=== PATIENT | male | born 1990 | race Caucasian/White ===

== ENCOUNTER 2016-07-31 01:40 | Emergency (ER) | payer MEDICAID, SELFPAY ==
[~2016-07-31] VITALS: Ht 175.3 cm; Wt 68.0 kg
[~2016-07-31 01:40] MED LIST: ALBU17IN2 INH; CLIN1CAP5 PO; CLIN75CA PO; DEPA1TAB3 PO; DEPA250T2 PO; DEPA250T32 PO; DEPA500T2 PO; DOXY10CA PO; EFFE75CA75 OR; IBUP60TA PO; LAMI25TA OR; No Historical Meds; No home meds; PROZ10CA7 PO; RISATAB3 PO; RISP0.5T16 PO; RISP0.5T3 PO; RISP1TAB41 PO; ROBISYP PO; TRAZO50TA PO; [UNRECOGNIZED DRUG - OTHER]; hydrocodone PO
[2016-07-31] MEDS ORDERED: DEPA500T2 (02:00)
[2016-07-31] MEDS ORDERED: RISP0.5T3 (02:00)
[2016-07-31 03:40] LABS: MEAN CORPUSCULAR HEMOGLOBIN 30.8 pg (27.0-33.0); MEAN CORPUSCULAR HGB CONC 33.8 g/dl (32.0-36.5); MEAN CORPUSCULAR VOLUME 91.2 fl (80.0-96.0); RED CELL DISTRIBUTION WIDTH 12.3 % (11.5-14.5); WHITE BLOOD COUNT 7.1 K/mm3 (4.0-10.0)
[2016-07-31 03:49] LABS: METHADONE URINE NEGATIVE (NEGATIVE)
[2016-07-31 03:57] LABS: ALBUMIN 4.1 GM/DL (3.2-5.2); ALBUMIN/GLOBULIN RATIO 1.37 (1.00-1.93); ALKALINE PHOSPHATASE 75 U/L (45-117); ALT/SGPT 78 U/L (12-78); ANION GAP 8 MEQ/L (8-16); AST/SGOT 54 U/L (15-37); BILIRUBIN,DIRECT 0.2 MG/DL (0.0-0.2); BILIRUBIN,TOTAL 0.6 MG/DL (0.2-1.0); BLOOD UREA NITROGEN 18 MG/DL (7-18); CALCIUM LEVEL 8.4 MG/DL (8.5-10.1); CARBON DIOXIDE LEVEL 30 MEQ/L (21-32); CHLORIDE LEVEL 104 MEQ/L (98-107); CREATININE FOR GFR 1.21 MG/DL (0.70-1.30); GLOMERULAR FILTRATION RATE > 60.0 (>60); GLUCOSE, FASTING 95 MG/DL (70-105); POTASSIUM SERUM 3.9 MEQ/L (3.5-5.1); SODIUM LEVEL 142 MEQ/L (136-145); TOTAL PROTEIN 7.1 GM/DL (6.4-8.2)
[2016-07-31 06:39] VITALS: BP 105/54
--- NOTE | 2016-07-31 20:27 | ECGEPIP ---
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
== END 2016-07-31 06:41 | disposition home or self-care (01) ==
LOC: M ED 04:00
DX: F19.10 Other psychoactive substance abuse, uncomplicated (principal); F31.9 Bipolar disorder, unspecified; B19.20 Unspecified viral hepatitis C without hepatic coma; F43.10 Post-traumatic stress disorder, unspecified; F17.210 Nicotine dependence, cigarettes, uncomplicated
CPT/HCPCS: 36415; 80048; 80076; 80306; 82550; 84443; 85027; 93005; 99285; G0480

== ENCOUNTER 2016-08-17 21:23 | Emergency (ER) | payer MEDICAID, SELFPAY ==
[~2016-08-17] VITALS: Ht 177.8 cm; Wt 70.3 kg
[~2016-08-17 21:23] MED LIST changes: +DEPA500T2; +RISP0.5T3
[2016-08-17 21:24] VITALS: BP 141/79
[2016-08-17] MEDS ORDERED: BACTRIM 160MG/800MG DS TAB PO ONE (22:15)
[2016-08-17] MEDS ORDERED: BACT800T5 PO (22:15)
== END 2016-08-17 22:23 | disposition left against medical advice (07) ==
LOC: M ED 21:54
DX: L03.114 Cellulitis of left upper limb (principal); Z88.0 Allergy status to penicillin

== ENCOUNTER 2016-09-05 17:15 | Emergency (ER) | payer SELFPAY ==
[~2016-09-05] VITALS: Ht 177.8 cm; Wt 68.0 kg
[~2016-09-05 17:15] MED LIST changes: +BACT800T5 PO
[2016-09-05 17:16] VITALS: BP 123/66
[2016-09-06] MEDS ORDERED: CLEO75CA PO (21:01)
[2016-09-06] MEDS ORDERED: CLEO300C2 PO (21:44)
[2016-09-06] MEDS ORDERED: NAPR500T PO (21:44)
== END 2016-09-05 18:14 | disposition left against medical advice (07) ==
LOC: M ED 17:57
DX: L02.91 Cutaneous abscess, unspecified (principal); Z53.21 Procedure and treatment not carried out due to patient leaving prior to being seen by health care provider

== ENCOUNTER 2016-09-06 20:54 | Emergency (ER) | payer MEDICAID, SELFPAY ==
[~2016-09-06] VITALS: Ht 177.8 cm; Wt 70.3 kg
[2016-09-06 20:55] VITALS: BP 130/60
[2016-09-06] MEDS ORDERED: CLEO75CA PO (21:01)
[2016-09-06] MEDS ORDERED: NAPR500T PO (21:44)
[2016-09-06] MEDS ORDERED: CLEO300C2 PO (21:44)
[2016-09-06] MEDS ORDERED: CLINDAMYCIN 150 MG CAP PO ONE (21:45)
== END 2016-09-06 21:55 | disposition home or self-care (01) ==
LOC: M ED 21:34
DX: L02.413 Cutaneous abscess of right upper limb (principal); L02.414 Cutaneous abscess of left upper limb; F19.10 Other psychoactive substance abuse, uncomplicated; J45.909 Unspecified asthma, uncomplicated; Z88.0 Allergy status to penicillin

== ENCOUNTER 2016-09-17 14:17 | Emergency (ER) | payer MEDICAID, SELFPAY ==
[~2016-09-17] VITALS: Ht 177.8 cm; Wt 70.3 kg
[~2016-09-17 14:17] MED LIST changes: +CLEO300C2 PO; +CLEO75CA PO; +NAPR500T PO
[2016-09-17 15:50] LABS: BASO % 0.5 % (0.0-1.0); EOS # 0.1 K/mm3 (0.0-0.50); EOS % 1.3 % (0.0-3.0); LARGE UNSTAINED CELL # 0.2 K/mm3 (0.0-0.4); LYMPH # 1.9 K/mm3 (1.5-6.5); LYMPH % 22.4 % (24.0-44.0); MEAN CORPUSCULAR HGB CONC 33.4 g/dl (32.0-36.5); MEAN CORPUSCULAR VOLUME 92.9 fl (80.0-96.0); MONO # 0.6 K/mm3 (0.0-0.8); MONO % 8.1 % (0.0-5.0); NEUTROPHILS # 5.1 K/mm3 (1.8-7.7); NEUTROPHILS % 65.8 % (36.0-66.0); PLATELET COUNT, AUTOMATED 201 k/mm3 (150-450); RED CELL DISTRIBUTION WIDTH 12.5 % (11.5-14.5); WHITE BLOOD COUNT 7.7 K/mm3 (4.0-10.0)
[2016-09-17 16:08] LABS: METHADONE URINE NEGATIVE (NEGATIVE)
[2016-09-17 16:15] LABS: ALBUMIN 3.9 GM/DL (3.2-5.2); ALBUMIN/GLOBULIN RATIO 1.34 (1.00-1.93); ALKALINE PHOSPHATASE 68 U/L (45-117); ALT/SGPT 120 U/L (12-78); ANION GAP 9 MEQ/L (8-16); AST/SGOT 54 U/L (15-37); BILIRUBIN,DIRECT 0.1 MG/DL (0.0-0.2); BILIRUBIN,TOTAL 0.5 MG/DL (0.2-1.0); BLOOD UREA NITROGEN 14 MG/DL (7-18); CALCIUM LEVEL 8.6 MG/DL (8.5-10.1); CARBON DIOXIDE LEVEL 27 MEQ/L (21-32); CHLORIDE LEVEL 103 MEQ/L (98-107); CREATININE FOR GFR 1.01 MG/DL (0.70-1.30); GLOMERULAR FILTRATION RATE > 60.0 (>60); GLUCOSE, FASTING 96 MG/DL (70-105); SODIUM LEVEL 139 MEQ/L (136-145); TOTAL PROTEIN 6.8 GM/DL (6.4-8.2)
[2016-09-17 18:18] VITALS: BP 134/74
== END 2016-09-17 18:19 | disposition home or self-care (01) ==
LOC: M ED 15:22
DX: F15.10 Other stimulant abuse, uncomplicated (principal); F12.10 Cannabis abuse, uncomplicated; L03.114 Cellulitis of left upper limb; J45.909 Unspecified asthma, uncomplicated; F90.9 Attention-deficit hyperactivity disorder, unspecified type; F31.9 Bipolar disorder, unspecified; F43.10 Post-traumatic stress disorder, unspecified; F17.200 Nicotine dependence, unspecified, uncomplicated; Z88.0 Allergy status to penicillin; Z88.1 Allergy status to other antibiotic agents
CPT/HCPCS: 36415; 80048; 80076; 80306; 84443; 85025; 99283; G0480

== ENCOUNTER 2016-09-24 22:49 | Emergency (ER) | payer MEDICAID ==
[~2016-09-24] VITALS: Ht 177.8 cm; Wt 68.0 kg
[2016-09-25] MEDS ORDERED: LORazepam 2 MG/ML VIAL (J2060) IV STA (00:20)
[2016-09-25] MEDS ORDERED: NS 1,000 ML IV ONE (00:30)
[2016-09-25 01:47] LABS: ANION GAP 6 MEQ/L (8-16); BLOOD UREA NITROGEN 13 MG/DL (7-18); CALCIUM LEVEL 9.1 MG/DL (8.5-10.1); CARBON DIOXIDE LEVEL 30 MEQ/L (21-32); CHLORIDE LEVEL 103 MEQ/L (98-107); GLOMERULAR FILTRATION RATE > 60.0 (>60); GLUCOSE, FASTING 99 MG/DL (70-105); POTASSIUM SERUM 4.1 MEQ/L (3.5-5.1); SODIUM LEVEL 139 MEQ/L (136-145)
[2016-09-25 02:29] VITALS: BP 142/66
== END 2016-09-25 02:32 | disposition home or self-care (01) ==
LOC: M ED 23:49
DX: F15.10 Other stimulant abuse, uncomplicated (principal); F17.200 Nicotine dependence, unspecified, uncomplicated; Z79.899 Other long term (current) drug therapy; Z88.0 Allergy status to penicillin
CPT/HCPCS: 80048; 82550; 96374; 99282; J2060

== ENCOUNTER 2016-10-03 17:56 | Emergency (ER) | payer MEDICAID ==
[~2016-10-03] VITALS: Ht 177.8 cm; Wt 68.0 kg
[2016-10-03] MEDS ORDERED: NS 1,000 ML IV ONE (18:15)
[2016-10-03 18:31] LABS: BASO % 0.3 % (0.0-1.0); EOS # 0.1 K/mm3 (0.0-0.50); EOS % 1.3 % (0.0-3.0); LARGE UNSTAINED CELL # 0.2 K/mm3 (0.0-0.4); LARGE UNSTAINED CELL % 3.2 % (0.0-4.0); LYMPH # 2.3 K/mm3 (1.5-6.5); LYMPH % 30.5 % (24.0-44.0); MEAN CORPUSCULAR HEMOGLOBIN 31.8 pg (27.0-33.0); MEAN CORPUSCULAR HGB CONC 34.2 g/dl (32.0-36.5); MEAN CORPUSCULAR VOLUME 93.1 fl (80.0-96.0); MONO # 0.5 K/mm3 (0.0-0.8); MONO % 7.2 % (0.0-5.0); NEUTROPHILS # 4.4 K/mm3 (1.8-7.7); NEUTROPHILS % 57.4 % (36.0-66.0); PLATELET COUNT, AUTOMATED 245 k/mm3 (150-450); RED CELL DISTRIBUTION WIDTH 12.5 % (11.5-14.5); WHITE BLOOD COUNT 7.6 K/mm3 (4.0-10.0)
[2016-10-03 18:58] LABS: ALBUMIN 4.2 GM/DL (3.2-5.2); ALBUMIN/GLOBULIN RATIO 1.45 (1.00-1.93); ALT/SGPT 155 U/L (12-78); ANION GAP 9 MEQ/L (8-16); AST/SGOT 73 U/L (15-37); BILIRUBIN,DIRECT 0.2 MG/DL (0.0-0.2); BILIRUBIN,TOTAL 0.6 MG/DL (0.2-1.0); BLOOD UREA NITROGEN 21 MG/DL (7-18); CARBON DIOXIDE LEVEL 29 MEQ/L (21-32); CHLORIDE LEVEL 101 MEQ/L (98-107); CREATININE FOR GFR 1.08 MG/DL (0.70-1.30); GLOMERULAR FILTRATION RATE > 60.0 (>60); GLUCOSE, FASTING 122 MG/DL (70-105); SODIUM LEVEL 139 MEQ/L (136-145); TOTAL PROTEIN 7.1 GM/DL (6.4-8.2)
[2016-10-03 18:59] LABS: ALKALINE PHOSPHATASE 70 U/L (45-117)
[2016-10-03 19:02] LABS: METHADONE URINE NEGATIVE (NEGATIVE)
[2016-10-03] MEDS ORDERED: LORazepam 2 MG/ML VIAL (J2060) IV STA (19:21)
[2016-10-03] MEDS ORDERED: GI COCKTAIL 50ML BTL(HYOSCYAMINE/MAALOX/LIDOCAINE VISCOUS)(1:3:1) PO ONE (19:30)
[2016-10-04 02:37] VITALS: BP 109/58
--- NOTE | 2016-10-04 16:38 | ECGEPIP ---
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
== END 2016-10-04 02:38 | disposition home or self-care (01) ==
LOC: M ED 18:51
DX: F15.129 Other stimulant abuse with intoxication, unspecified (principal); R07.9 Chest pain, unspecified; B19.20 Unspecified viral hepatitis C without hepatic coma; F31.9 Bipolar disorder, unspecified; F17.200 Nicotine dependence, unspecified, uncomplicated; Z88.0 Allergy status to penicillin; Z79.2 Long term (current) use of antibiotics
CPT/HCPCS: 36415; 80048; 80076; 80306; 82550; 82553; 83690; 85025; 93005; 93041; 96374; 96375; 99285; G0480; J2060; J3360

== ENCOUNTER 2016-10-19 14:03 | Emergency (ER) | payer MEDICAID ==
[~2016-10-19] VITALS: Ht 177.8 cm; Wt 68.0 kg
[2016-10-19 14:04] VITALS: BP 135/78
== END 2016-10-19 14:49 | disposition home or self-care (01) ==
LOC: M ED 14:47
DX: S80.11XA Contusion of right lower leg, initial encounter (principal); W22.09XA Striking against other stationary object, initial encounter; Y92.410 Unspecified street and highway as the place of occurrence of the external cause; Y93.89 Activity, other specified; Y99.8 Other external cause status; F17.200 Nicotine dependence, unspecified, uncomplicated; Z88.0 Allergy status to penicillin

== ENCOUNTER 2016-10-24 14:36 | Emergency (ER) | payer MEDICAID, OTHER, SELFPAY ==
[~2016-10-24] VITALS: Ht 177.8 cm; Wt 68.0 kg
[2016-10-24 14:37] VITALS: BP 140/74
== END 2016-10-24 15:36 | disposition left against medical advice (07) ==
LOC: M ED 15:30
DX: M79.662 Pain in left lower leg (principal); Z53.21 Procedure and treatment not carried out due to patient leaving prior to being seen by health care provider

== ENCOUNTER 2016-11-03 20:45 | Emergency (ER) | payer OTHER, SELFPAY ==
[~2016-11-03] VITALS: Ht 177.8 cm; Wt 67.6 kg
[2016-11-03 20:46] VITALS: BP 134/72
== END 2016-11-03 21:38 | disposition left against medical advice (07) ==
LOC: M ED 21:29
DX: Z53.29 Procedure and treatment not carried out because of patient's decision for other reasons (principal)

== ENCOUNTER 2016-11-09 10:55 | Emergency (ER) | payer OTHER, SELFPAY ==
[~2016-11-09] VITALS: Ht 177.8 cm; Wt 68.2 kg
[2016-11-09 10:57] VITALS: BP 156/96
[2016-11-09 12:57] LABS: BASO % 0.5 % (0.0-1.0); EOS # 0.1 K/mm3 (0.0-0.50); EOS % 0.7 % (0.0-3.0); LARGE UNSTAINED CELL # 0.2 K/mm3 (0.0-0.4); LYMPH # 2.6 K/mm3 (1.5-6.5); LYMPH % 23.5 % (24.0-44.0); MEAN CORPUSCULAR HEMOGLOBIN 32.1 pg (27.0-33.0); MEAN CORPUSCULAR HGB CONC 33.7 g/dl (32.0-36.5); MEAN CORPUSCULAR VOLUME 95.3 fl (80.0-96.0); MONO # 0.6 K/mm3 (0.0-0.8); MONO % 5.9 % (0.0-5.0); NEUTROPHILS # 6.9 K/mm3 (1.8-7.7); NEUTROPHILS % 67.3 % (36.0-66.0); PLATELET COUNT, AUTOMATED 238 k/mm3 (150-450); RED CELL DISTRIBUTION WIDTH 13.2 % (11.5-14.5); WHITE BLOOD COUNT 10.2 K/mm3 (4.0-10.0)
--- NOTE | 2016-11-09 13:04 | REP ---
Chest x-ray: Two views. History: Sternal pain . Comparison study: February 04, 2016 . Findings: The lungs are well inflated and free of infiltrate. The pleural angles are sharp. The heart size is normal. Pulmonary vasculature is not increased. No significant bony abnormality is seen. There is a minimal S-shaped roto scoliotic curve in the thoracolumbar spine unchanged. Impression: Minimal scoliosis unchanged from February 12, 2016 prior study. Otherwise negative chest x-ray. Signed by Omkar Ken MD 11/09/2016 12:56 P
[2016-11-09 14:22] LABS: ALBUMIN 4.1 GM/DL (3.2-5.2); ALBUMIN/GLOBULIN RATIO 1.21 (1.00-1.93); ALKALINE PHOSPHATASE 85 U/L (45-117); ALT/SGPT 184 U/L (12-78); ANION GAP 5 MEQ/L (8-16); AST/SGOT 74 U/L (15-37); BILIRUBIN,DIRECT 0.1 MG/DL (0.0-0.2); BILIRUBIN,TOTAL 0.4 MG/DL (0.2-1.0); BLOOD UREA NITROGEN 12 MG/DL (7-18); CARBON DIOXIDE LEVEL 31 MEQ/L (21-32); CHLORIDE LEVEL 104 MEQ/L (98-107); CREATININE FOR GFR 1.08 MG/DL (0.70-1.30); GLOMERULAR FILTRATION RATE > 60.0 (>60); GLUCOSE, FASTING 87 MG/DL (70-105); POTASSIUM SERUM 4.1 MEQ/L (3.5-5.1); SODIUM LEVEL 140 MEQ/L (136-145); TOTAL PROTEIN 7.5 GM/DL (6.4-8.2)
--- NOTE | 2016-11-10 07:17 | REP ---
STERNUM SERIES: Two views. HISTORY: Xyphoid process pain. FINDINGS: Oblique and lateral radiographs of the sternum show normal manubrium, sternal body, and xyphoid process. These are best depicted on the lateral radiograph. There is no evidence of deformity, displacement or erosive change. No pre sternal or retrosternal soft tissue swelling is seen. IMPRESSION: Negative sternal views. Signed by Omkar Ken MD 11/10/2016 08:23 A
--- NOTE | 2016-11-11 08:52 | ECGEPIP ---
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 Order Number: [id number] Reading MD: Marija Velasquez Measurements Intervals [place] Rate: 104 P: 79 CO: 115 QRS: 88 QRSD: 102 T: 39 QT: 315 QTc: 415 Interpretive Statements SINUS TACHYCARDIA WITH SHORT CO INTERVAL ABNORMAL RHYTHM ECG RAD DECREASED RATE 10/03/16 Electronically Signed On 11-11-2016 8:51:48 EDT by Marija Velasquez
== END 2016-11-09 14:19 | disposition left against medical advice (07) ==
LOC: M ED 12:30
DX: M79.603 Pain in arm, unspecified (principal); F19.10 Other psychoactive substance abuse, uncomplicated; R07.9 Chest pain, unspecified; Z88.0 Allergy status to penicillin

== ENCOUNTER → 2016-11-26 | Outpatient (CLI) | payer OTHER ==
[~2016-11-26] MED LIST changes: +CLIN150C14 PO; -CLIN1CAP5 PO; +DOXY100T2 PO; -DOXY10CA PO; -RISP0.5T16 PO; +RISP0.5T21 PO; -RISP1TAB41 PO; +RISP1TAB42 PO
== END ==
LOC: M OUTALCOH 12:12
PROVIDERS: ATTEND Psychiatry & Neurology Psychiatry
DX: Z13.9 Encounter for screening, unspecified (principal); F15.20 Other stimulant dependence, uncomplicated; F10.20 Alcohol dependence, uncomplicated

== ENCOUNTER 2016-12-28 06:11 | Emergency (ER) | payer OTHER ==
[~2016-12-28] VITALS: Ht 177.8 cm; Wt 70.5 kg
[2016-12-28 07:32] VITALS: BP 161/106
== END 2016-12-28 07:35 | disposition home or self-care (01) ==
LOC: M ED 06:11
DX: I80.8 Phlebitis and thrombophlebitis of other sites (principal); B19.20 Unspecified viral hepatitis C without hepatic coma; F11.90 Opioid use, unspecified, uncomplicated; F17.200 Nicotine dependence, unspecified, uncomplicated; Z88.0 Allergy status to penicillin

== ENCOUNTER 2017-02-09 05:01 | Emergency (ER) | payer OTHER ==
[~2017-02-09] VITALS: Ht 180.3 cm; Wt 75.0 kg
[2017-02-09 05:17] VITALS: BP 136/82
== END 2017-02-09 06:31 | disposition left against medical advice (07) ==
LOC: M ED 05:01
DX: S90.561A Insect bite (nonvenomous), right ankle, initial encounter (principal); W57.XXXA Bitten or stung by nonvenomous insect and other nonvenomous arthropods, initial encounter; Y92.89 Other specified places as the place of occurrence of the external cause; Y93.89 Activity, other specified; Y99.8 Other external cause status; Z53.29 Procedure and treatment not carried out because of patient's decision for other reasons

== ENCOUNTER → 2017-02-09 | Outpatient (REF) | payer OTHER | LOC: M LAB REF 17:01 | PROVIDERS: ATTEND Physician Assistant Medical | DX: S91.105A Unspecified open wound of left lesser toe(s) without damage to nail, initial encounter (principal); X58.XXXA Exposure to other specified factors, initial encounter; Y93.9 Activity, unspecified; Y92.9 Unspecified place or not applicable; Y99.8 Other external cause status ==

== ENCOUNTER 2017-02-16 06:28 | Emergency (ER) | payer OTHER ==
[~2017-02-16] VITALS: Ht 175.3 cm; Wt 71.2 kg
[2017-02-16 06:49] VITALS: BP 143/84
[2017-02-16] MEDS ORDERED: NS 1,000 ML IV SCH (07:20)
[2017-02-16] MEDS ORDERED: METOCLOPRAMIDE INJ 10MG/2ML VIAL (J2765) IV ONE (07:30)
--- NOTE | 2017-02-16 08:40 | ECGEPIP ---
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
== END 2017-02-16 07:51 | disposition left against medical advice (07) ==
LOC: M ED 06:28 → EDBD 06:28 → M ED 07:51
DX: F19.10 Other psychoactive substance abuse, uncomplicated (principal); F17.210 Nicotine dependence, cigarettes, uncomplicated; Z88.0 Allergy status to penicillin

== ENCOUNTER → 2017-05-07 | Outpatient (CLI) | payer OTHER | LOC: M OUTALCOH 07:50 | PROVIDERS: ATTEND Psychiatry & Neurology Psychiatry | DX: F15.20 Other stimulant dependence, uncomplicated (principal); F10.20 Alcohol dependence, uncomplicated ==

== ENCOUNTER 2017-05-19 10:44 | Outpatient (RCR) | payer OTHER | END 2017-05-24 | LOC: M OUTALCOH 10:44 | DX: F15.20 Other stimulant dependence, uncomplicated (principal); F10.20 Alcohol dependence, uncomplicated; F17.200 Nicotine dependence, unspecified, uncomplicated ==

== ENCOUNTER 2017-06-05 14:27 | Outpatient (RCR) | payer OTHER | END 2017-06-24 | LOC: M OUTALCOH 14:27 | DX: F15.20 Other stimulant dependence, uncomplicated (principal); F10.20 Alcohol dependence, uncomplicated; F17.200 Nicotine dependence, unspecified, uncomplicated ==

== ENCOUNTER 2017-06-25 11:17 | Outpatient (RCR) | payer OTHER | END 2017-07-22 | LOC: M OUTALCOH 11:17 | DX: F15.20 Other stimulant dependence, uncomplicated (principal); F10.20 Alcohol dependence, uncomplicated; F17.200 Nicotine dependence, unspecified, uncomplicated ==

== ENCOUNTER 2017-09-23 13:53 | Emergency (ER) | payer OTHER ==
[2017-09-23] MEDS: IBUPROFEN 800 MG TAB PO (14:45)
[2017-09-23] MEDS: METHOCARBAMOL 500 MG TAB PO (14:47)
== END 2017-09-23 15:14 | disposition home or self-care (01) ==
LOC: M ED 13:53
DX: S29.012A Strain of muscle and tendon of back wall of thorax, initial encounter (principal); S16.1XXA Strain of muscle, fascia and tendon at neck level, initial encounter; X50.9XXA Other and unspecified overexertion or strenuous movements or postures, initial encounter; Y92.89 Other specified places as the place of occurrence of the external cause; J45.909 Unspecified asthma, uncomplicated; F17.210 Nicotine dependence, cigarettes, uncomplicated; Z88.0 Allergy status to penicillin
CPT/HCPCS: 99283

== ENCOUNTER → 2017-12-24 | Outpatient (CLI) | payer OTHER | LOC: M OUTALCOH 08:33 | DX: Z13.9 Encounter for screening, unspecified (principal); F15.20 Other stimulant dependence, uncomplicated; F10.20 Alcohol dependence, uncomplicated; F12.10 Cannabis abuse, uncomplicated ==

== ENCOUNTER 2018-02-26 15:42 | Emergency (ER) | payer OTHER | END 2018-02-26 16:37 | disposition left against medical advice (07) | LOC: M ED 15:42 | DX: Z53.21 Procedure and treatment not carried out due to patient leaving prior to being seen by health care provider (principal) ==

== ENCOUNTER → 2018-04-08 | Outpatient (CLI) | payer MEDICAID | LOC: M OUTALCOH 08:15 | DX: F15.20 Other stimulant dependence, uncomplicated (principal) ==

== ENCOUNTER → 2019-03-10 | Outpatient (REF) | payer OTHER ==
[~2019-03-10] MED LIST changes: +IBUP600T42 PO; -IBUP60TA PO; +IBUP80TA PO; +NAPR-837 PO; -NAPR500T PO; +ROBA500T PO; +TRAZ1TAB10 PO; -TRAZO50TA PO
[2019-03-10 13:52] LABS: CHOLESTEROL LEVEL 182 MG/DL (<200); CHOLESTEROL RISK RATIO 3.309 (<5); HDL CHOLESTEROL 55 MG/DL (>40); LDL CHOLESTEROL 110 MG/DL (<100); NON-HDL-C 127 MG/DL; TRIGLYCERIDES LEVEL 85 MG/DL (<150)
[2019-03-10 14:14] LABS: HEMOGLOBIN A1c 5.7 %
[2019-03-11 11:50] LABS: HIV 1&2 SCREEN CENTAUR NEGATIVE (NEGATIVE)
[2019-03-14 14:08] LABS: HEPATITIS C QUANTITATION 116940 IU/mL (.)
== END ==
LOC: M SFHCPLAZ 09:43
PROVIDERS: ATTEND Family Medicine
DX: B18.2 Chronic viral hepatitis C (principal); Z13.1 Encounter for screening for diabetes mellitus; F19.10 Other psychoactive substance abuse, uncomplicated; Z13.220 Encounter for screening for lipoid disorders

== ENCOUNTER → 2019-03-25 | Outpatient (CLI) | payer OTHER | LOC: M OUTALCOH 08:19 | PROVIDERS: ATTEND Psychiatry & Neurology Psychiatry | DX: F10.20 Alcohol dependence, uncomplicated (principal); F12.10 Cannabis abuse, uncomplicated; F15.10 Other stimulant abuse, uncomplicated ==

== ENCOUNTER → 2019-04-01 | Outpatient (REF) | payer OTHER ==
[2019-04-01 18:54] LABS: APPEARANCE, URINE CLEAR (CLEAR); BACTERIA, URINE AUTO NEGATIVE (NEGATIVE); BILIRUBIN, URINE AUTO NEGATIVE (NEGATIVE); BLOOD, URINE BLOOD NEGATIVE (NEGATIVE); COLOR, URINE YELLOW (YELLOW); GLUCOSE, URINE (UA) AUTO NEGATIVE (NEGATIVE); KETONE, URINE AUTO NEGATIVE (NEGATIVE); LEUKOCYTE ESTERASE, URINE AUTO NEGATIVE (NEGATIVE); MUCUS, URINE SMALL (NEGATIVE); NITRITE, URINE AUTO NEGATIVE (NEGATIVE); PROTEIN, URINE AUTO NEGATIVE (NEGATIVE); RBC, URINE AUTO 0 /HPF (0-3); SPECIFIC GRAVITY URINE AUTO 1.008 (1.002-1.035); SQUAMOUS EPITHELIAL CELL UR AU 0 /HPF (0-6); UROBILINOGEN, URINE AUTO 0.2 mg/dL (0.0-2.0); WBC, URINE AUTO 0 /HPF (0-3)
[2019-04-01 20:45] LABS: CHLAMYDIA DNA AMPLIFICATION NEGATIVE (NEGATIVE); GC DNA AMPLIFICATION NEGATIVE (NEGATIVE)
== END ==
LOC: M LAB REF 18:19
PROVIDERS: ATTEND Physician Assistant
DX: N39.0 Urinary tract infection, site not specified (principal)

== ENCOUNTER 2019-04-20 13:58 | Outpatient (RCR) | payer OTHER | END 2019-04-23 | LOC: M OUTALCOH 13:58 | PROVIDERS: ATTEND Psychiatry & Neurology Psychiatry | DX: F15.10 Other stimulant abuse, uncomplicated (principal); F10.20 Alcohol dependence, uncomplicated; F17.200 Nicotine dependence, unspecified, uncomplicated; F12.10 Cannabis abuse, uncomplicated ==

== ENCOUNTER 2019-05-16 14:00 | Outpatient (RCR) | payer OTHER | END 2019-05-24 | LOC: M OUTALCOH 14:00 | PROVIDERS: ATTEND Psychiatry & Neurology Psychiatry | DX: F15.10 Other stimulant abuse, uncomplicated (principal); F10.20 Alcohol dependence, uncomplicated; F12.10 Cannabis abuse, uncomplicated; F17.200 Nicotine dependence, unspecified, uncomplicated ==

== ENCOUNTER → 2019-07-10 | Outpatient (REF) | payer OTHER ==
[2019-07-10 17:23] LABS: AMORPHOUS SEDIMENT SMALL (NEGATIVE); APPEARANCE, URINE CLEAR (CLEAR); BACTERIA, URINE AUTO NEGATIVE (NEGATIVE); BILIRUBIN, URINE AUTO NEGATIVE (NEGATIVE); BLOOD, URINE BLOOD NEGATIVE (NEGATIVE); COLOR, URINE YELLOW (YELLOW); GLUCOSE, URINE (UA) AUTO NEGATIVE (NEGATIVE); KETONE, URINE AUTO NEGATIVE (NEGATIVE); LEUKOCYTE ESTERASE, URINE AUTO NEGATIVE (NEGATIVE); MUCUS, URINE SMALL (NEGATIVE); NITRITE, URINE AUTO NEGATIVE (NEGATIVE); PROTEIN, URINE AUTO NEGATIVE (NEGATIVE); RBC, URINE AUTO 1 /HPF (0-3); SPECIFIC GRAVITY URINE AUTO 1.027 (1.002-1.035); SQUAMOUS EPITHELIAL CELL UR AU 0 /HPF (0-6); UROBILINOGEN, URINE AUTO 0.2 mg/dL (0.0-2.0); WBC, URINE AUTO 1 /HPF (0-3)
[2019-07-10 18:56] LABS: CHLAMYDIA DNA AMPLIFICATION NEGATIVE (NEGATIVE); GC DNA AMPLIFICATION NEGATIVE (NEGATIVE)
== END ==
LOC: M LAB REF 15:52
PROVIDERS: ATTEND Physician Assistant Medical
DX: N23 Unspecified renal colic (principal)

== ENCOUNTER → 2019-07-12 | Outpatient (CLI) | payer OTHER ==
--- NOTE | 2019-07-12 14:16 | REPPI ---
Clinical: thoracic pain. Technique: AP, lateral, and swimmers views. Findings: Alignment and kyphosis is maintained. Vertebral bodies intact. No acute fracture / compression injury or subluxation. No degenerative changes. Paravertebral soft tissues are normal. Impression: Essentially normal thoracic spine radiograph series. No acute fracture / compression injury or subluxation. Electronically Signed by Ramesh Dixon MD 07/12/2019 02:07 P
== END ==
LOC: M PLAIMG 13:51
PROVIDERS: ATTEND Physician Assistant
DX: M54.6 Pain in thoracic spine (principal)

== ENCOUNTER → 2019-11-08 | Outpatient (REF) | payer OTHER ==
[~2019-11-08] MED LIST changes: -CLIN150C14 PO; +CLIN150C15 PO; +RISP-7; +RISP-7 PO; -RISP0.5T3
== END ==
LOC: M LAB REF 17:39
PROVIDERS: ATTEND Physician Assistant
DX: J02.9 Acute pharyngitis, unspecified (principal)

== ENCOUNTER 2020-01-14 02:05 | Emergency (ER) | payer OTHER ==
[~2020-01-14] VITALS: Ht 175.3 cm; Wt 69.2 kg
[~2020-01-14 02:05] MED LIST changes: +CLIN150C14 PO; -CLIN150C15 PO; -RISP-7; -RISP-7 PO; +RISP0.5T3
[2020-01-14] MEDS ORDERED: CLINDAMYCIN 900 MG in IV 1 EA IV ONE (04:15)
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
[2020-01-14 05:56] VITALS: BP 100/53
== END 2020-01-14 05:58 | disposition short-term general hospital (02) ==
LOC: M ED 02:05
DX: S02.602B Fracture of unspecified part of body of left mandible, initial encounter for open fracture (principal); S02.641B Fracture of ramus of right mandible, initial encounter for open fracture; Y04.8XXA Assault by other bodily force, initial encounter; Y92.89 Other specified places as the place of occurrence of the external cause; F19.10 Other psychoactive substance abuse, uncomplicated; F17.200 Nicotine dependence, unspecified, uncomplicated; Z88.0 Allergy status to penicillin

== ENCOUNTER 2022-01-04 19:51 | Emergency (ER) | payer OTHER ==
[~2022-01-04] VITALS: Ht 177.8 cm; Wt 77.3 kg
[~2022-01-04 19:51] MED LIST changes: -CLIN150C14 PO; +CLIN150C17 PO; +RISP-7; +RISP-7 PO; -RISP0.5T3
[2022-01-04] MEDS ORDERED: CLIN-250 (20:06)
[2022-01-04 23:34] LABS: BASO % 0.4 % (0.0-1.0); EOS # 0.1 10^3/uL (0.0-0.5); EOS % 1.6 % (0.0-3.0); HEMATOCRIT 43.6 % (42.0-52.0); HEMOGLOBIN 14.4 g/dl (13.5-17.5); LYMPH # 2.4 10^3/uL (1.5-5.0); MEAN CORPUSCULAR HEMOGLOBIN 31.6 pg (27.0-33.0); MEAN CORPUSCULAR VOLUME 95.8 fl (80.0-96.0); MONO # 0.7 10^3/uL (0.0-0.8); MONO % 9.8 % (2.0-8.0); NEUTROPHILS # 4.1 10^3/uL (1.5-8.5); NEUTROPHILS % 55.9 % (36.0-66.0); PLATELET COUNT, AUTOMATED 200 10^3/uL (150-450); RED BLOOD COUNT 4.55 10^6/uL (4.30-6.10); WHITE BLOOD COUNT 7.4 10^3/uL (4.0-10.0)
[2022-01-05 00:01] LABS: ERYTHROCYTE SEDIMENTATION RATE 1 mm/hr (0-15)
[2022-01-05 00:12] LABS: BLOOD UREA NITROGEN 21 MG/DL (7-18); CALCIUM LEVEL 9.2 MG/DL (8.5-10.1); CARBON DIOXIDE LEVEL 31 MEQ/L (21-32); CHLORIDE LEVEL 104 MEQ/L (98-107); CREATININE FOR GFR 1.07 MG/DL (0.70-1.30); GLOMERULAR FILTRATION RATE > 60.0 (>60); GLUCOSE, FASTING 103 MG/DL (70-100); SODIUM LEVEL 139 MEQ/L (136-145)
[2022-01-05 09:36] VITALS: BP 109/79
[2022-01-07] MEDS ORDERED: DOXY-342 PO (18:57)
== END 2022-01-05 09:38 | disposition home or self-care (01) ==
LOC: M ED 19:51
DX: K12.2 Cellulitis and abscess of mouth (principal); F17.200 Nicotine dependence, unspecified, uncomplicated; Z88.0 Allergy status to penicillin

== ENCOUNTER → 2022-01-24 | Outpatient (CLI) | payer OTHER ==
[~2022-01-24] MED LIST changes: +CLIN-250; +DOXY-342 PO; +ISOVUE-370 76% 25ML SYRINGE As Ordered ONE
== END ==
LOC: M RAD 09:46
DX: S02.651 Fracture of angle of right mandible (principal); W18.30XD Fall on same level, unspecified, subsequent encounter; Y92.009 Unspecified place in unspecified non-institutional (private) residence as the place of occurrence of the external cause
CPT/HCPCS: 70487; Q9967

== ENCOUNTER → 2022-09-02 | Outpatient (REF) | payer OTHER ==
[~2022-09-02] MED LIST changes: -DOXY-342 PO; +DOXY100C81 PO; -ISOVUE-370 76% 25ML SYRINGE As Ordered ONE
[2022-09-02 18:30] LABS: APPEARANCE, URINE HAZY (CLEAR); BACTERIA, URINE AUTO NEGATIVE (NEGATIVE); BILIRUBIN, URINE AUTO NEGATIVE (NEGATIVE); BLOOD, URINE BLOOD NEGATIVE (NEGATIVE); COLOR, URINE YELLOW (YELLOW); GLUCOSE, URINE (UA) AUTO NEGATIVE (NEGATIVE); KETONE, URINE AUTO NEGATIVE (NEGATIVE); LEUKOCYTE ESTERASE, URINE AUTO TRACE (NEGATIVE); MUCUS, URINE SMALL (NEGATIVE); NITRITE, URINE AUTO NEGATIVE (NEGATIVE); PROTEIN, URINE AUTO 1+ mg/dL (NEGATIVE); RBC, URINE AUTO 2 /HPF (0-3); SPECIFIC GRAVITY URINE AUTO 1.029 (1.002-1.035); SQUAMOUS EPITHELIAL CELL UR AU 0 /HPF (0-6); UROBILINOGEN, URINE AUTO 0.2 mg/dL (0.0-2.0); WBC, URINE AUTO 1 /HPF (0-3)
[2022-09-02 19:12] LABS: GC DNA AMPLIFICATION NEGATIVE (NEGATIVE)
== END ==
LOC: M SFHCPLAZ 14:02
PROVIDERS: ATTEND Nurse Practitioner Family
DX: N39.0 Urinary tract infection, site not specified (principal)

== ENCOUNTER → 2022-10-29 | Outpatient (CLI) | payer OTHER | LOC: M PLAIMG 09:22 | PROVIDERS: ATTEND Nurse Practitioner Family | DX: M54.16 Radiculopathy, lumbar region (principal) ==

== ENCOUNTER → 2022-12-30 | Outpatient (CLI) | payer OTHER ==
[~2022-12-30] MED LIST changes: -DOXY100C81 PO; +DOXY100C82 PO
== END ==
LOC: M WUC 09:33
PROVIDERS: ATTEND Nurse Practitioner Family
DX: M25.521 Pain in right elbow (principal)